=== PATIENT | female | born 2000 | race Two or more races ===

== ENCOUNTER 2024-08-01 17:30 | Emergency (ER) | payer OTHER ==
[~2024-08-01] VITALS: Ht 154.9 cm; Wt 49.9 kg
[2024-08-01 22:41] VITALS: BP 109/71; O2SAT 100
== END 2024-08-01 22:43 | disposition home or self-care (01) ==
LOC: ER 17:30
DX: S89.82XA Other specified injuries of left lower leg, initial encounter (principal); W10.8XXA Fall (on) (from) other stairs and steps, initial encounter; Y93.89 Activity, other specified; Y92.89 Other specified places as the place of occurrence of the external cause; Y99.8 Other external cause status

== ENCOUNTER 2024-08-08 16:08 | Emergency (ER) | payer OTHER ==
[~2024-08-08] VITALS: Ht 154.9 cm; Wt 49.9 kg
[2024-08-08] MEDS ORDERED: KETOROLAC TROMETHAMINE 60 MG VIAL IM STA (18:16)
== END 2024-08-08 18:43 | disposition home or self-care (01) ==
LOC: ER 16:10
DX: M25.562 Pain in left knee (principal)